=== PATIENT | female | born 1990 | race Caucasian/White ===

== ENCOUNTER 2021-09-19 16:23 | Emergency (ER) | payer OTHER, SELFPAY ==
--- NOTE | ~2021-09-19 | XR_ITS ---
EXAMINATION: XR chest 2V DATE: 09/19/2021 17:09 INDICATION: Transient alteration of awareness TECHNIQUE: PA and lateral views of the chest are obtained. COMPARISON: 11/09/2007 FINDINGS: The lungs are free of acute opacities. There is no pleural effusion or pneumothorax. The ca rdiomediastinal silhouette is normal. Calcified mediastinal lymph nodes are consistent with old granu lomatous disease. The visualized bones and soft tissues are unremarkable. IMPRESSION: 1. No acute cardiopulmonary abnormality. Reviewed, dictated and finalized at location [facility]
[2021-09-19 16:33] VITALS: BP 127/86; PULSE 75; RESP 16; TEMP 36.7; O2SAT 100
--- NOTE | 2021-09-19 16:47 | ED.DIZZY ---
HPI - Dizziness General Chief Complaint: Dizziness Stated Complaint: Fainting Time Seen by Provider: 09/19/21 16:40 Source: patient Mode of arrival: ambulatory Limitations: no limitations History of Present Illness HPI Narrative: 31-year-old female presented for complaint of dizzy episode yesterday. She endorses getting out of the shower when she developed dizziness, chest pain and palpitations, and used her inhaler which helped symptoms. She states the episode lasted approximately 45 minutes. She endorses associated nausea and vomiting for 1 episode. She has not eaten all day today. She states this is happened in the past when she was dehydrated and low on iron. MD elicited complaint: dizziness Related Data Allergies Allergy/AdvReac Type Severity Reaction Status Date / Time Penicillins Allergy Unknown Verified 09/19/21 16:37 Review of Systems Review of Systems: CONSTITUTIONAL: Denies body aches, fever, chills, or sweats. EYES: Denies visual changes, redness, or discharge. ENT: Denies rhinorrhea, congestion, sore throat, or otalgia. CARDIOVASCULAR: Denies chest pain, palpitations, or edema. RESPIRATORY: Denies cough or dyspnea. GASTROINTESTINAL: Denies abdominal pain, nausea, vomiting, or diarrhea. GENITOURINARY: Denies dysuria or hematuria. SKIN: Endorses rash, itching to neck MUSCULOSKELETAL: Denies back pain, joint pain, or myalgia. NEUROLOGIC: Denies headache, numbness, tingling, or weakness. PSYCH: Denies depression or anxiety. Exam Narrative: GENERAL: Well-appearing, well-nourished, and in no acute distress. HEAD: Normocephalic, atraumatic. EYES: EOMI. No redness or drainage. Conjunctivae normal. ENT: Mucous membranes pink and moist. No rhinorrhea. TMs normal bilaterally. Throat normal. Uvula midline. NECK: Normal AROM. Supple. No lymphadenopathy. CHEST: No respiratory distress. Clear to auscultation. HEART: Regular rate and rhythm. No murmur appreciated. Normal peripheral pulses. ABDOMEN: Soft, nontender, nondistended MUSCULOSKELETAL: No bony tenderness. EXTREMITIES: Normal range of motion. No edema. SKIN: scattered scaly/red lesions to bilat ears and upper chest, no drainage; Warm, dry, Capillary refill normal. Normal skin turgor. NEURO: No focal deficits. Alert and oriented x3. Gait steady. PSYCH: Normal affect. No signs of depression or anxiety. Course Course Emergency Course: Patient is aware of diagnosis, understands and agrees to treatment plan. Anticipatory guidance given. Patient agrees to follow-up as directed and is aware of reasons to seek care at the emergency department. Portions of this record may have been created with voice recognition software Level of Care: Express Care Visit Vital Signs Vital signs: Vital Signs Temperature 98.0 F 09/19/21 16:33 Pulse Rate 75 09/19/21 16:33 Respiratory Rate 16 09/19/21 16:33 Blood Pressure 127/86 09/19/21 16:33 Pulse Oximetry 100 09/19/21 16:33 Temperature 98.0 F 09/19/21 16:33 Pulse Rate 75 09/19/21 16:33 Respiratory Rate 16 09/19/21 16:33 Blood Pressure 127/86 09/19/21 16:33 Pulse Oximetry 100 09/19/21 16:33 MDM - Dizziness Differential Diagnosis Differential diagnosis: Likely benign paroxysmal positional vertigo, orthostatic hypotension and other (near syncope, vasovagal, hypoglycemia, arrhythmia, asthma exacerbation, dehydration, anxiety) Imaging Data Attestation: I personally reviewed and interpreted this imaging study as follows: My impression: No acute cardiopulmonary abnormality. Radiologist's impression: EXAMINATION: XR chest 2V DATE: 09/19/2021 17:09 INDICATION: Transient alteration of awareness TECHNIQUE: PA and lateral views of the chest are obtained. COMPARISON: 11/09/2007 FINDINGS: The lungs are free of acute opacities. There is no pleural effusion or pneumothorax. The cardiomediastinal silhouette is normal. Calcified mediastinal lymph nodes are consistent with old granulomatous disea
--- NOTE | 2021-09-19 16:59 | ECG_ITS ---
Measurements Intervals [place] Rate: 67 P: 76 DE: 136 QRS: 42 QRSD: 106 T: 34 QT: 395 QTc: 417 Interpretive Statements SINUS RHYTHM INCOMPLETE RIGHT BUNDLE BRANCH BLOCK BASELINE ARTIFACT- I, II, III, AVR, AVL, AVF, V3 BORDERLINE ECG Electronically Signed On 09-21-2021 7:16:01 ELECTRICAL INSTALLATION SUPERVISOR by Bebeto Sewell D.O.
== END 2021-09-19 17:28 | disposition home or self-care (01) ==
PROVIDERS: Emergency Provider Nurse Practitioner Family
DX: R42 Dizziness and giddiness (principal); I45.10 Unspecified right bundle-branch block
CPT/HCPCS: 71046; 93005; 99203; G0463

== ENCOUNTER 2022-12-05 16:23 | Emergency (ER) | payer MEDICAID, SELFPAY ==
[2022-12-05 16:24] VITALS: BP 121/70; PULSE 81; RESP 16; TEMP 36.3; O2SAT 100
--- NOTE | 2022-12-05 16:51 | ED.DENTAL ---
HPI - Dental/Oral General Chief complaint: Dental/Oral Stated complaint: dental pain Time Seen by Provider: 12/05/22 16:51 Source: patient Mode of arrival: ambulatory Limitations: no limitations History of Present Illness HPI Narrative: Patient is a 32-year-old female who presents ED with right lower dental pain. Patient reports she fractured her right lower molar, tooth #30, several years ago. She has not seen a dentist for this. She developed pain starting yesterday afternoon, which has persisted since then. Patient has been taking Aleve and Tylenol with minimal relief. She reports heat and cold sensitivity, but denies difficulty swallowing or breathing, swelling of gums or drainage from tooth, swelling of neck or face, fevers, nausea, vomiting, drooling. Patient states she has had a hard time getting into see a dentist. Patient is currently [address] Arboleda with [facility]. She denies any issues with her , denies vaginal bleeding, abdominal pain, leakage of fluid. Related Data Allergies Allergy/AdvReac Type Severity Reaction Status Date / Time Penicillins Allergy Unknown Verified 09/19/21 16:37 Review of Systems Review of Systems: CONSTITUTIONAL: Denies fever, chills, or sweats. ENT: See HPI. RESPIRATORY: Denies dyspnea. GASTROINTESTINAL: Denies abdominal pain, nausea, vomiting. GENITOURINARY: Denies vaginal bleeding, dysuria or hematuria. SKIN: See HPI. MUSCULOSKELETAL: See HPI. All systems reviewed & are unremarkable except as noted in HPI and below PMFSH Past Medical History Medical History (Updated 12/05/22 @ 17:14 by Magaly Brunner PA-C) No pertinent past medical history Surgical History Surgical History (Updated 12/05/22 @ 16:52 by Magaly Brunner PA-C) No pertinent past surgical history Social History Social History (Updated 12/05/22 @ 16:52 by Magaly Brunner PA-C) Smoking status: Never smoker Exam Narrative: GENERAL: Well appearing, well-nourished, non-toxic, in no acute distress. HEAD: Normocephalic, atraumatic. ENT: Diffuse dental decay, scattered dental caries. Fractured tooth at tooth #30, right lower molar, with tenderness and erythema to inner and outer gumline surrounding tooth. No focal abscess. No trismus. Maintaining secretions. NECK: Supple. No mandibular swelling. No adenopathy, no masses. RESPIRATORY: Airway patent, respirations nonlabored. Clear to auscultation bilaterally, no rales, rhonchi, wheezing. CARDIOVASCULAR: Regular rate and rhythm without murmurs, rubs, or gallops. Radial pulses 2+ and equal bilaterally. ABDOMINAL: Soft, nontender, nondistended, no hepatosplenomegaly. Normoactive BS. MUSCULOSKELETAL: Moves all extremities. Strength/ROM intact without gross deformities. SKIN: Warm, dry, normal color. No rashes. NEURO: A&O X3. Speech clear. Cranial nerves II-XII grossly intact. Steady gait. No ataxic movements. PSYCHIATRIC: Appropriate mood and affect. Normal interaction. HENMT: Teeth image: 1. fractured tooth Course Vital Signs Vital signs: Vital Signs Temperature 97.4 F L 12/05/22 16:24 Pulse Rate 81 12/05/22 16:24 Respiratory Rate 16 12/05/22 16:24 Blood Pressure 121/70 12/05/22 16:24 Pulse Oximetry 100 12/05/22 16:24 Oxygen Delivery Room Air 12/05/22 16:24 Temperature 97.4 F L 12/05/22 16:24 Pulse Rate 81 12/05/22 16:24 Respiratory Rate 16 12/05/22 16:24 Blood Pressure 121/70 12/05/22 16:24 Pulse Oximetry 100 12/05/22 16:24 Oxygen Delivery Room Air 12/05/22 16:24 MDM - Dental/Oral MDM Narrative Medical decision making narrative: Patient's pain is consistent with dental caries. There are no focal signs of space-occupying abscess. The patient is controlling secretions well without signs of airway compromise. Patient is felt reasonable for outpatient follow-up with dental evaluation. Patient has allergy to penicillin, unsure if she has ever t
[2022-12-05] MEDS: ACETAMINOPHEN 500 MG TABLET 1000 MG PO (17:24)
[2022-12-05] MEDS: CLINDAMYCIN HCL 150 MG CAP 450 MG PO (17:25)
== END 2022-12-05 17:38 | disposition home or self-care (01) ==
PROVIDERS: Emergency Provider Physician Assistant
DX: S02.5XXA Fracture of tooth (traumatic), initial encounter for closed fracture (principal); X58.XXXA Exposure to other specified factors, initial encounter
CPT/HCPCS: 99283; A9270

== ENCOUNTER 2023-02-11 05:09 | Inpatient (IN) | payer OTHER, SELFPAY ==
[2023-02-11] VITALS (60 sets, daily range): BP systolic 87–104; BP diastolic 53–81; PULSE 49–78; RESP 13–18; TEMP 36.2–36.9; O2SAT 92–99; BMI 30.7
--- NOTE | 2023-02-11 05:09 | LDADM ---
This patient, Carmen Sultana, was admitted to Labor/Delivery/Recovery 119 on 02/11/23 at 05:09. Plans for labor, pain management and were discussed with patient. Patient/family oriented to hospital policies and general routines including ID bracelet, bed and alarms, visiting hours, pain management, procedures, bathroom and other care routines, personal items, smoking policy, room service/diet and guest tray routines, security routines, and visiting hours. Patient/Family are encouraged to report perceived risks to care and to ask questions if they do not understand what they are told or what they should do. See [facility]BIX for further documentation.
[2023-02-11] MEDS: LACTATED RINGERS 1,000 ML 125 ML IV CONT ×3 (05:45→08:48)
[2023-02-11 06:51] LABS: Basophils Percent Auto 0.4 % (0.2-1.2); Eosinophils Absolute Auto 0.1 K/mm3 (0-0.3); Eosinophils Percent Auto 0.7 % (0-4.4); Hematocrit 28.6 % (37.0-47.0); Hemoglobin 8.9 g/dL (12.0-15.0); Immature Granulocyte Absolute 0.04 K/mm3 (0.00-0.031); Immature Granulocyte Percent A 0.4 % (0-0.5); Lymphocytes Absolute Auto 2.13 K/mm3 (0.9-3.2); Lymphocytes Percent Auto 23.4 % (18.3-44.2); Mean Corpuscular HGB Conc 31.1 g/dl (32-36); Mean Corpuscular Hemoglobin 25.7 pg (26-34); Mean Corpuscular Volume 82.7 fl (80-100); Mean Platelet Volume 10.4 fl (7.4-10.4); Monocytes Absolute Auto 0.6 K/mm3 (0.1-0.6); Monocytes Percent Auto 6.8 % (2.6-8.5); Neutrophils Absolute Auto 6.2 K/mm3 (1.3-6.7); Neutrophils Percent Auto 68.3 % (45.5-73.1); Platelet Count Result 235 k/mm3 (150-375); Red Blood Count 3.46 M/mm3 (4.2-5.4); Red Cell Distribution Width 13.6 % (11.5-14.5); White Blood Count 9.1 K/mm3 (4.5-10.0)
--- NOTE | 2023-02-11 07:02 | WPDANESEPPF ---
Anes - Initial Pre Proc Eval Procedure: Operation Date: 02/11/23 07:30 Proposed Procedures p Repeat Section with Tubal Ligation - Essence Arboleda MD Date/Time: 02/11/23 07:02 Surgeon: Essence Arboleda MD Pre Op Diagnosis: Repeat C Section Patient Data Age: 33 Gender: F Height: Weight: Last Vital Signs Pulse 78 02/11/23 05:47 BP 99/60 L 02/11/23 05:47 Allergies Allergy/AdvReac Type Severity Reaction Status Date / Time Penicillins Allergy Unknown Verified 09/19/21 16:37 Home Medications Medication Instructions Recorded Confirmed Type albuterol sulfate 90 mcg/actuation 1 inh inhalation QID PRN shortness 09/19/21 Rx aerosol inhaler of breath or wheezing #8.5 grams clindamycin HCl 150 mg capsule 450 mg PO Q8H 7 days #63 caps 12/05/22 Rx Laboratory Tests 02/11/23 06:40 WBC 9.1 K/mm3 (4.5-10.0) RBC 3.46 L M/mm3 (4.2-5.4) Hgb 8.9 L g/dL (12.0-15.0) Hct 28.6 L % (37.0-47.0) MCV 82.7 fl (80-100) MCH 25.7 L pg (26-34) MCHC 31.1 L g/dl (32-36) RDW 13.6 % (11.5-14.5) Plt Count 235 k/mm3 (150-375) MPV 10.4 fl (7.4-10.4) Immature Gran % (Auto) 0.4 % (0-0.5) Neut % (Auto) 68.3 % (45.5-73.1) Lymph % (Auto) 23.4 % (18.3-44.2) [place] % (Auto) 6.8 % (2.6-8.5) Eos % (Auto) 0.7 % (0-4.4) Baso % (Auto) 0.4 % (0.2-1.2) Lymph # (Auto) 2.13 K/mm3 (0.9-3.2) [place] # (Auto) 0.6 K/mm3 (0.1-0.6) Eos # (Auto) 0.1 K/mm3 (0-0.3) Baso # (Auto) 0.0 K/mm3 (0.0-0.1) Abs Immat Gran (auto) 0.04 H K/mm3 (0.00-0.031) Absolute Neuts (auto) 6.2 K/mm3 (1.3-6.7) Absolute Nucleated RBC 0.0 K/mm3 (0.0-0.012) Nucleated RBC % 0.0 % (0.0-0.2) RPR Pending Patient hx anesthesia problems: none Family hx anesthesia problems: none Results Review: All pre-operative results and documents have been reviewed as part of the pre-operative evaluation. [facility] Past Medical History Medical History No pertinent past medical history Surgical History Surgical History No pertinent past surgical history Social History Social History Smoking status: Never smoker Anes - Eval Final PreProcedure Day of Procedure 02/11/23 07:02 Patient weight: obese Heart: regular rate and rhythm Lungs: clear to auscultation Airway: Mallampati scale class II Neurological: alert and oriented Last oral intake: >/= 8 hours ASA classification: III Emergent: no Anesthetic plan: proceed Anesthesia type and monitoring: regional spinal and standard monitoring Results Review: All pre-operative results and documents have been reviewed as part of the pre-operative evaluation. Informed Consent: The patient's anesthetic plan and its attendant risks and benefits were discussed with the patient/family/POA. Questions were solicited and answers provided to the satisfaction of the patient/family/POA.
--- NOTE | 2023-02-11 07:25 | PM.IMHP ---
H&P: HPI History of Present Illness Date/Time: 02/11/23 07:25 Chief Complaint: repeat CS and sterilization Narrative: Carmen is a 33yo here for a repeat CS and bilateral salpingectomy for sterilization. 39.1, complicated by late PNC, trichomonas. GBS neg. Review of Systems Review of Systems: All systems reviewed & are unremarkable except as noted in HPI and below PMFSH Past Medical History Medical History No pertinent past medical history Surgical History Surgical History No pertinent past surgical history Social History Social History Smoking status: Never smoker Substance use: never Lack of Transportation: No Lack of Food: Never True Current Housing: I Have Housing Concerned About Future Housing: No Difficulty Paying Gas/Electric Bills: No Difficulty Paying for Meds: No Currently Unemployed: No Education: High School Diploma/GED Difficulty w/ Childcare or Family Care: No Spiritual care concerns: No Meds Home Medications and Allergies Home Medications Medication Instructions Recorded Confirmed Type albuterol sulfate 90 mcg/actuation 1 inh inhalation QID PRN shortness 09/19/21 02/11/23 Rx aerosol inhaler of breath or wheezing #8.5 grams Allergies Allergy/AdvReac Type Severity Reaction Status Date / Time Penicillins Allergy Unknown Verified 09/19/21 16:37 Vital Signs Vital Signs - 24 hr 02/11/23 05:39 02/11/23 05:47 02/11/23 06:43 Pulse Rate 76 78 Blood Pressure 103/65 99/60 L Oxygen Delivery Room Air Exam Const: General: no acute distress Resp: Effort & Inspection: normal respiratory effort Auscultation: clear to auscultation bilaterally Cardio: Rate: regular rate Rhythm: regular rhythm GI: GI Palp: Yes Soft to palpation Extrem: General: normal to inspection H&P: Results Labs Labs: Short CBC 02/11/23 Range/Units 06:40 WBC 9.1 (4.5-10.0) K/mm3 Hgb 8.9 L (12.0-15.0) g/dL Hct 28.6 L (37.0-47.0) % Plt Count 235 (150-375) k/mm3 Assessment and Plan Assessment and plan (1) History of delivery: Code(s): Z98.891 - History of uterine scar from previous surgery Status: Acute (2) Sterilization: Code(s): Z30.2 - Encounter for sterilization Status: Acute Plan consented for repeat CS and bilateral salpingectomy. discused RBA, will proceed. anemia, at risk for transfusion post op.
--- NOTE | 2023-02-11 07:28 | WPDHPUPDATE1 ---
History and Physical Update Update Date/Time: 02/11/23 07:28 History and Physical has been reviewed, including an updated exam of the patient. There are NO changes in the patient's condition. Risks, benefits, and alternatives have been discussed and questions answered. Patient agrees to proceed with procedure.
[2023-02-11] MEDS: ceFAZolin 2 GM/D5W 50 ML 2 GM/50 ML BAG IVPB (07:43)
[2023-02-11] MEDS: KETOROLAC 15 MG/ML VIAL (*BKC) IV PUSH (08:06)
--- NOTE | 2023-02-11 08:40 | P.PCNOB_ITS ---
OB - Delivery Note Procedure Delivery date: 02/11/23 Procedure: Procedures Operation Date: 02/11/23 07:30 <No data on this case meets the specified criteria> repeat low transverse section and bilateral salpingectomy Events: Previous Delivery Route of delivery: Specimen: Yes (placenta) Quantitative Blood Loss (ml): 255 Anesthesia type: Spinal Disposition: Floor Complications: none Narrative: Preop Dx: prior CS, desires sterilizatoin Post op DX: same The patient was taken to the OR and received spinal anesthesia. She was placed in dorsal supine position with left lateral tilt. SCDs and lyon were placed. She was prepped and draped in the normal sterile fashion. A Pfannensteil skin incision was made and carried through to the underlying layer of fascia. The fascia was incised in the midline and then extended laterally using Hunt scissors. The muscles were in the midline and the peritoneum was entered bluntly. The peritoneal incision was extended inferiorly and superiorly with care to avoid the bladder. The bladder blade was then inserted, the vesicouterine peritoneum was grasped, incised with Metzenbaum scissors, and a bladder flap created. The bladder blade was reinserted. A low transverse uterine incision was made with a scalpel and extended bluntly. AROM was performed and fluid was noted to be clear. The head was delivered, followed by the remainder of the baby. The baby's oropharynx was suctioned. After 30 seconds, the cord was clamped and cut and the infant was handed off. Cord blood was obtained and the placenta was then removed manually. The uterus was exteriorized. A moist lap sponge was used to curette the endometrium. The uterine incision was then closed with one layer of 0-Vicryl in a running, locking fashion. Two figure of eight sutures were placed at the left aspect of incision for hemostasis. Good hemostasis was noted. I then turned attention to the tubes. Using the Ligasure, the right tube was removed by sequentially clamping, cauterizing, and cutting the tube free from the cornua and the broad ligament. Similarly, the left tube was removed. The posterior cul de sac was irrigated with normal saline and cleared of all clot and debris. The uterus was returned to the abdomen. Both lateral gutters were then irrigated. The rectus muscles were inspected and found to be hemostatic. The fascia was reapproximated using 0-Vicryl in running fashion. The subcutaneous tissue was irrigated with normal saline and made hemostatic with Bovie electrocautery. The skin was then closed with reabsorbable jaja. Steri strips and a bandage were applied. The uterus was evacuated. The patient tolerated the procedure very well. All counts were correct. She was taken to the recovery room in good condition. [place] Baby Date of : 02/11/23 Time of : 08:04 Weeks of gestation at delivery: 39 Infant gender: Male Weight (pounds): 6 Weight (ounces): 15 presentation: vertex Placenta delivery description: Manual Removal Cord Vessel Description: 3 Vessels, Nuchal Cord and Delayed Cord Clamping score one minute: 8 score five minutes: 9
[2023-02-11] MEDS: OXYTOCIN 30 UNITS/NS 500 ML 30 UNITS/500 ML BAG 125 UNITS IV CONT (10:01)
[2023-02-11] MEDS: diphenhydrAMINE HCl INJ 50 MG/ML VIAL 25 MG IV PUSH (10:38)
--- NOTE | 2023-02-11 11:15 | PC.NURSE ---
Patient transferred to post room # 291 via stretcher. Support person present. Oriented to unit, room, information board, rooming in, admission packet and security measures. Patient verbalizes understanding.
[2023-02-11 13:16] LABS: Rapid Plasma Reagin Non-Reactive (NonReactive)
[2023-02-11] MEDS: DEXTROSE 5%/0.45% SOD CHL 1,000 ML 125 ML IV CONT (14:18)
[2023-02-11] MEDS: LORATADINE 10 MG TABLET PO (15:02)
[2023-02-11] MEDS: DOCUSATE SODIUM 100 MG CAPSULE PO (17:48)
[2023-02-11] MEDS: POLYSACCHARIDE IRON COMPLEX 150 MG CAPSULE PO (17:48)
[2023-02-12 05:50] VITALS: BP 99/61; PULSE 83; RESP 16; TEMP 36.3
[2023-02-12] MEDS: IBUPROFEN 600 MG TABLET PO ×2 (05:52→16:30)
[2023-02-12] MEDS: HYDROcodone/acetaminophen (*CRX) 5-325 MG TABLET 1 TAB PO ×2 (05:52→16:30)
[2023-02-12 06:17] LABS: Basophils Percent Auto 0.2 % (0.2-1.2); Eosinophils Percent Auto 0.2 % (0-4.4); Hematocrit 28.6 % (37.0-47.0); Hemoglobin 8.7 g/dL (12.0-15.0); Immature Granulocyte Absolute 0.07 K/mm3 (0.00-0.031); Immature Granulocyte Percent A 0.5 % (0-0.5); Lymphocytes Absolute Auto 1.33 K/mm3 (0.9-3.2); Mean Corpuscular HGB Conc 30.4 g/dl (32-36); Mean Corpuscular Hemoglobin 25.7 pg (26-34); Mean Corpuscular Volume 84.6 fl (80-100); Mean Platelet Volume 10.6 fl (7.4-10.4); Monocytes Absolute Auto 0.8 K/mm3 (0.1-0.6); Monocytes Percent Auto 6.2 % (2.6-8.5); Neutrophils Absolute Auto 11.1 K/mm3 (1.3-6.7); Neutrophils Percent Auto 82.9 % (45.5-73.1); Platelet Count Result 215 k/mm3 (150-375); Red Blood Count 3.38 M/mm3 (4.2-5.4); Red Cell Distribution Width 13.7 % (11.5-14.5); White Blood Count 13.3 K/mm3 (4.5-10.0)
--- NOTE | 2023-02-12 07:51 | PM.OBPNVD ---
OB - PN: Subj Subjective Date/time seen: 02/12/23 07:51 Patient comments: no complaints and pain well controlled Narrative: POD 1 from primary CS. Doing well. Normal lochia. Eating, ambulating, lyon out. OB - PN: Obj Data Labs 02/12/23 05:07 Labs: Laboratory Results - last 24 hr 02/11/23 02/12/23 06:40 05:07 WBC 13.3 H RBC 3.38 L Hgb 8.7 L Hct 28.6 L MCV 84.6 MCH 25.7 L MCHC 30.4 L RDW 13.7 Plt Count 215 MPV 10.6 H Immature Gran % (Auto) 0.5 Neut % (Auto) 82.9 H Lymph % (Auto) 10.0 L [place] % (Auto) 6.2 Eos % (Auto) 0.2 Baso % (Auto) 0.2 Lymph # (Auto) 1.33 [place] # (Auto) 0.8 H Eos # (Auto) 0.0 Baso # (Auto) 0.0 Abs Immat Gran (auto) 0.07 H Absolute Neuts (auto) 11.1 H Absolute Nucleated RBC 0.0 Nucleated RBC % 0.0 RPR Non-reactive Antibody Screen Negative OB - PN A/P Plan day: 1 Plan: routine care Comments: minimal drop in Hgb but started anemic, will do IV iron today. circumcision done. Time Spent With Patient Time: Total time spent is greater than 50% in coordination of care (as documented) at patient's floor/unit and/or counseling patient: Exam Narrative: NAD abdomen soft, appropriately tender, incision bandaged Extremities nontender with 1+ edema
--- NOTE | 2023-02-12 08:01 | WPDANLDPN2 ---
Anes-Prog Note L&D Date/Time: 02/12/23 08:01 Neuro status: Neuro function grossly intact. Vital Signs: Last Vital Signs Temp 36.3 C L 02/12/23 05:50 Pulse 83 02/12/23 05:50 Resp 16 02/12/23 05:50 BP 99/61 L 02/12/23 05:50 Pulse Ox 97 02/11/23 11:15 O2 Del Method Room Air 02/11/23 10:50 Pain score (VAS): 0 I/O: Intake & Output 02/11/23 02/12/23 02/12/23 23:59 07:59 15:59 Intake Total 500 500 Output Total 500 3500 Balance 0 -3000 Patient feedback: Patient satisfied with anesthetic care.
--- NOTE | 2023-02-12 08:01 | WPDANLDNPN2 ---
Anes-Prog Note L&D-Neuraxial Date/Time: 02/12/23 08:01 Patient feedback: Patient satisfied with post-operative pain management.
[2023-02-12 08:50] VITALS: BP 97/57; PULSE 63; RESP 18; TEMP 36.9; O2SAT 100
[2023-02-12] MEDS: MULTIVIT/MIN/PREN/FOL AC/IRON TABLET 1 TAB PO (09:33)
[2023-02-12] MEDS: POLYSACCHARIDE IRON COMPLEX 150 MG CAPSULE PO ×2 (09:33→16:30)
[2023-02-12] MEDS: DOCUSATE SODIUM 100 MG CAPSULE PO ×2 (09:33→16:30)
[2023-02-12 19:25] VITALS: BP 95/47; PULSE 73; RESP 16; TEMP 36.4
[2023-02-13] MEDS: HYDROcodone/acetaminophen (*CRX) 5-325 MG TABLET 1 TAB PO (05:05)
[2023-02-13] MEDS: IBUPROFEN 600 MG TABLET PO (05:05)
--- NOTE | 2023-02-13 07:20 | PM.OBPNVD ---
OB - PN: Subj Subjective Date/time seen: 02/13/23 07:20 Patient comments: no complaints and pain well controlled baby status: doing well Narrative: desires DC home today. OB - PN: Obj Data Labs 02/12/23 05:07 OB - PN A/P Plan day: 2 Plan: routine care and discharge home Time Spent With Patient Time: Total time spent is greater than 50% in coordination of care (as documented) at patient's floor/unit and/or counseling patient: Exam Narrative: NAD abdomen soft, appropriately tender, incision CDI Extremities nontender with 1+ edema
--- NOTE | 2023-02-13 07:24 | PM.OBDSVD ---
DS: Admitting Diagnosis Discharge Date 02/13/23 Admitting Diagnosis prior CS DS: Discharge Diagnosis Discharge Diagnosis (1) delivery delivered: Code(s): O82 - Encounter for delivery without indication Status: Acute (2) Sterilization: Code(s): Z30.2 - Encounter for sterilization Status: Acute OB - DS: Summary Hospital Course Hospital Course: Carmen was admitted for repeat CS and bilateral salpingectomy for sterilization at 39w. Her delivery and course were uncomplicated. She was discharged home on POD 2. OB Procedures : Ultrasound OB Procedures Intrapartum: and Tubal ligation OB Procedures: : None Peripartum Data Infant Delivery Method: Section Procedures: Procedures Operation Date: 02/11/23 07:30 Actual Procedure Side Surgeon p Section Essence Arboleda MD repeat section and bilateral salpingectomy complications: none Status at Discharge Functional status at discharge: independent ambulation Time Spent with Patient Time attestation: Total time spent providing and/or coordinating discharge services: Exam Narrative: NAD abdomen soft, appropriately tender, incision CDI DS: Data Data Completed and Pending Completed studies during hospitalization: Pending at discharge 02/11/23 08:21 Surgical [PTH] Routine Discharge Plan Discharge Attending physician on discharge: Essence Arboleda Discharging Clinician: Essence Arboleda Anticipated Discharge Date/Time: 02/13/23 07:22 Patient Disposition: Home, Self-Care Activity: may shower, may drive after 2 weeks and pelvic rest Diet: regular Patient Instructions: Antibiotic Form Stand Alone Forms: General Discharge Information Follow-up/Referrals: Essence Arboleda MD [Physician] - 1 Week Discharge Medications: New hydrocodone-acetaminophen 5-325 mg Tablet 1 tablet PO Q4-5H PRN (Reason: Moderate Pain (4-6)) Qty: 30 0RF docusate sodium 100 mg Capsule 100 mg PO BID PRN (Reason: Constipation) Qty: 60 0RF ibuprofen 600 mg Tablet 600 mg PO Q6H PRN (Reason: Cramping) Qty: 60 0RF Continued albuterol sulfate 90 mcg/actuation HFA aerosol inhaler 1 inh inhalation QID PRN (Reason: shortness of breath or wheezing) Qty: 8.5 0RF Date of admission: 02/11/23 05:09 Primary Care Provider: UNKNOWN,DOCTOR Admitting Provider: Essence Arboleda Attending physician on admission: Essence Arboleda. Condition: Stable
[2023-02-13 08:40] VITALS: BP 93/55; PULSE 65; RESP 16; TEMP 36.4; O2SAT 100
[2023-02-13] MEDS: DOCUSATE SODIUM 100 MG CAPSULE PO (08:58)
[2023-02-13] MEDS: POLYSACCHARIDE IRON COMPLEX 150 MG CAPSULE PO (08:58)
[2023-02-13] MEDS: MULTIVIT/MIN/PREN/FOL AC/IRON TABLET 1 TAB PO (08:58)
[2023-02-15 10:09] VITALS: BP 103/65; PULSE 73; RESP 18; TEMP 36.8; O2SAT 98
== END 2023-02-13 12:03 | disposition home or self-care (01) | DRG 540 ==
LOC: ANHLDR 05:17 → ANHOB2 11:09
PROVIDERS: Admitting Provider Obstetrics & Gynecology; Visit Provider Obstetrics & Gynecology
PROC: 10D00Z1 Extraction of Products of Conception, Low, Open Approach (ICD-10-PCS; CPT 59514; principal; 2023-02-11 07:30)
DX: O34.219 Maternal care for unspecified type scar from previous cesarean delivery (principal); O98.32 Other infections with a predominantly sexual mode of transmission complicating childbirth; Z30.2 Encounter for sterilization; O69.81X0 Labor and delivery complicated by cord around neck, without compression, not applicable or unspecified; A59.9 Trichomoniasis, unspecified; Z3A.39 39 weeks gestation of pregnancy; Z37.0 Single live birth
CPT/HCPCS: 36415; 85025; 86592; 86850; 86900; 86901; 88302; A9270; J0690; J1200; J1756; J1885; J2274; J2370; J2405; J2590; J7120